=== PATIENT | female | born 1945 | race Caucasian/White ===

== ENCOUNTER 2019-09-29 04:50 | Inpatient (IN) ==
[2019-09-29] MEDS ORDERED: Acetaminophen 325 MG TABLET PO PRN (11:15)
[2019-09-29] MEDS ORDERED: Ringers Solution, Lactated 1,000 ML IVC SCH (11:15)
[2019-09-29 11:53] LABS: Basophils % 0.2 %; Hemoglobin 13.2 g/dL (11.5-15.4); Immature Granulocytes % 0.5 % (0-4); Lymphocytes # 0.6 K/mcL (0.6-4.6); Lymphocytes % 2.9 %; Mean Corpuscular HGB Conc 33.8 g/dL (31.6-35.5); Mean Corpuscular Hemoglobin 30.6 pg (28.0-33.3); Mean Corpuscular Volume 90.5 fL (83.0-100.0); Mean Platelet Volume 10.6 fL (9.4-12.4); Monocytes # 1.3 K/mcL (0.0-1.3); Monocytes % 6.7 %; Neutrophils # 17.7 K/mcL (1.6-8.9); Platelet Count 240 K/mcL (140-400); Red Blood Count 4.31 M/mcL (3.82-4.97); Red Cell Distribution Width 12.6 % (11.5-14.5); Segmented Neutrophils % 89.7 %; White Blood Count 19.7 K/mcL (4.3-11.1)
[2019-09-29 11:54] LABS: Prothrombin Time 11.6 Seconds (9.4-12.1)
[2019-09-29 12:15] LABS: Alanine Aminotransferase 11 Units/L (7-52); Albumin/Globulin Ratio 1.4 (1.1-2.2); Alkaline Phosphatase 47 Units/L (34-104); Aspartate Amino Transferase 21 Units/L (13-39); BUN/Creatinine Ratio 15 (6-26); Bilirubin,Total 0.6 mg/dL (0.3-1.0); Blood Urea Nitrogen 12 mg/dL (8-23); Calcium 8.6 mg/dL (8.6-10.3); Carbon Dioxide 29 mEq/L (23-29); Chloride 96 mEq/L (98-107); Globulin 2.8 g/dL (2.4-3.5); Glucose 130 mg/dL (70-105); Magnesium 1.6 mg/dL (1.6-2.6); Osmolality,Calculated 282 (280-300); Phosphorous 4.1 mg/dL (2.7-4.5); Potassium 3.6 mEq/L (3.5-5.1); Sodium 135 mEq/L (136-145); Total Protein 6.8 g/dL (6.4-8.9); Troponin I 0.19 ng/mL (< 0.04); eGFR For African Americans > 60 (> 60); eGFR For Non-African Americans > 60 (> 60)
[2019-09-29] MEDS ORDERED: *HR* Labetalol 20 MG/4 ML SYRINGE IVP PRN (12:19)
[2019-09-29] MEDS ORDERED: Aspirin 325 MG TABLET PO ONE (12:21)
[2019-09-29] MEDS: Piperacillin/Tazobactam 3.375 GM in 0.9 % Sodium Chloride Mini Bag 100 ML IVPB SCH ×2 (14:29→19:51)
[2019-09-29] MEDS: *HR* OxyCODONE Immed Rel 5 MG TABLET PO PRN ×2 (14:29→19:52)
[2019-09-29] MEDS: hydrALAZINE 25 MG TABLET PO SCH ×3 (14:29→23:51)
[2019-09-29] MEDS: 0.9 % Sodium Chloride 1,000 ML IVC SCH ×2 (14:31→23:51)
[2019-09-30] MEDS: hydrALAZINE 25 MG TABLET PO SCH (00:44)
[2019-09-30] MEDS: *HR* Promethazine 25 MG/ML VIAL IVP PRN ×2 (01:07→10:21)
[2019-09-30 02:10] LABS: Hemoglobin 13.4 g/dL (11.5-15.4); Mean Corpuscular HGB Conc 34.4 g/dL (31.6-35.5); Mean Corpuscular Hemoglobin 31.2 pg (28.0-33.3); Mean Corpuscular Volume 90.7 fL (83.0-100.0); Mean Platelet Volume 10.7 fL (9.4-12.4); Platelet Count 258 K/mcL (140-400); Red Cell Distribution Width 12.9 % (11.5-14.5); White Blood Count 24.7 K/mcL (4.3-11.1)
[2019-09-30 02:28] LABS: BUN/Creatinine Ratio 18 (6-26); Blood Urea Nitrogen 12 mg/dL (8-23); Calcium 8.4 mg/dL (8.6-10.3); Carbon Dioxide 26 mEq/L (23-29); Chloride 97 mEq/L (98-107); Glucose 135 mg/dL (70-105); Osmolality,Calculated 274 (280-300); Potassium 3.6 mEq/L (3.5-5.1); Sodium 131 mEq/L (136-145); eGFR For African Americans > 60 (> 60); eGFR For Non-African Americans > 60 (> 60)
[2019-09-30 02:32] LABS: Troponin I 0.48 ng/mL (< 0.04)
[2019-09-30] MEDS ORDERED: *HR* Heparin 5,000 UNIT/ML VIAL IVP ONE (02:45)
[2019-09-30] MEDS ORDERED: *HR* Heparin 5,000 UNIT/ML VIAL IVP PRN ×2 (02:45)
[2019-09-30] MEDS ORDERED: Heparin 25,000 UNIT/250 ML D5W 25,000 UNIT/250 ML IV.SOLN IVC SCH (02:45)
[2019-09-30] MEDS: *HR* Metoprolol 5 MG/5 ML VIAL IVP SCH ×2 (03:01→15:54)
[2019-09-30] MEDS: Piperacillin/Tazobactam 3.375 GM in 0.9 % Sodium Chloride Mini Bag 100 ML IVPB SCH ×2 (03:59→11:17)
[2019-09-30 04:06] LABS: Red Cell Distribution Width 12.9 % (11.5-14.5)
[2019-09-30 04:07] LABS: Hematocrit 41.5 % (35.3-44.9); Mean Corpuscular HGB Conc 33.7 g/dL (31.6-35.5); Mean Corpuscular Hemoglobin 30.8 pg (28.0-33.3); Mean Corpuscular Volume 91.4 fL (83.0-100.0); Mean Platelet Volume 10.7 fL (9.4-12.4); Platelet Count 254 K/mcL (140-400); Red Blood Count 4.54 M/mcL (3.82-4.97); White Blood Count 26.8 K/mcL (4.3-11.1)
[2019-09-30 04:19] LABS: INR 1.4; Prothrombin Time 16.3 Seconds (9.4-12.1)
[2019-09-30 04:26] LABS: Heparin anti-factor XA UFH 1.25 IU/mL (0.30-0.70)
[2019-09-30] MEDS ORDERED: *HR* LORazepam 2 MG/ML VIAL IVP ONE ×2 (09:58→14:54)
[2019-09-30] MEDS: 0.9 % Sodium Chloride 1,000 ML IVC SCH ×2 (11:14→23:41)
[2019-09-30] MEDS ORDERED: Isovue-370 500 ML BOTTLE IVP ONE (11:32)
[2019-09-30] MEDS ORDERED: 0.9 % Sodium Chloride 1,000 ML IVC SCH (15:12)
[2019-09-30] MEDS ORDERED: Isovue-370 500 ML BOTTLE PO ONE (15:26)
[2019-09-30 17:40] LABS: Bacteria,Urine Few per hpf (None-Few); Bilirubin,Urine Negative (Negative); Blood,Urine Small (Negative); Clarity,Urine Ex.Turbid (Clear); Color,Urine Dark-Yellow (Yellow); Glucose,Urine (UA) Normal (Normal); Ketones,Urine Trace mg/dL (Negative); Leukocyte Esterase,Urine Large (Negative); Nitrite,Urine Negative (Negative); PH,Urine 6.5 pH Units (5.0-8.0); Protein,Urine >=300 mg/dL (Neg-Trace); RBC,Urine 15-30 per hpf (0-3); Specific Gravity,Urine > 1.030 (1.010-1.025); Urobilinogen,Urine Normal (Normal); WBC,Urine TNTC per hpf (0-3)
[2019-09-30 17:54] LABS: Mean Platelet Volume 10.8 fL (9.4-12.4)
[2019-09-30 17:55] LABS: Hematocrit 41.8 % (35.3-44.9); Mean Corpuscular HGB Conc 33.5 g/dL (31.6-35.5); Mean Corpuscular Hemoglobin 30.4 pg (28.0-33.3); Mean Corpuscular Volume 90.7 fL (83.0-100.0); Platelet Count 240 K/mcL (140-400); Red Blood Count 4.61 M/mcL (3.82-4.97); Red Cell Distribution Width 13.1 % (11.5-14.5)
[2019-09-30 17:57] LABS: Amphetamine Screen,Urine Negative ng/mL (Cutoff=1000); Barbiturate Screen,Urine Negative ng/mL (Cutoff=200); Benzodiazepines Screen,Urine Negative ng/mL (Cutoff=200); Cannabinoid Screen,Urine Negative ng/mL (Cutoff = 50); Cocaine Screen,Urine Negative ng/mL (Cutoff= 300); Opiate Screen,Urine Positive ng/mL (Cutoff=300); Phencyclidine Screen,Urine Negative ng/mL (Cutoff=25)
[2019-09-30 18:08] LABS: BUN/Creatinine Ratio 26 (6-26); Blood Urea Nitrogen 20 mg/dL (8-23); Calcium 8.3 mg/dL (8.6-10.3); Carbon Dioxide 24 mEq/L (23-29); Chloride 99 mEq/L (98-107); Glucose 146 mg/dL (70-105); Osmolality,Calculated 279 (280-300); Potassium 3.7 mEq/L (3.5-5.1); Sodium 132 mEq/L (136-145); eGFR For African Americans > 60 (> 60); eGFR For Non-African Americans > 60 (> 60)
[2019-09-30] MEDS ORDERED: *HR* FentaNYL (PF) 100 MCG/2 ML VIAL ONE (18:50)
[2019-09-30] MEDS ORDERED: *HR* Propofol 200 MG/20 ML VIAL IVP ONE (18:50)
[2019-09-30] MEDS ORDERED: *HR* Rocuronium Bromide 50 MG/5 ML VIAL ONE (18:50)
[2019-09-30] MEDS ORDERED: Dexamethasone 4 MG/ML VIAL ONE (18:50)
[2019-09-30] MEDS ORDERED: Ondansetron 4 MG/2 ML VIAL ONE (18:50)
[2019-09-30] MEDS ORDERED: Lidocaine -MPF 2% 2 ML VIAL ONE (18:50)
[2019-09-30] MEDS ORDERED: Heparin 1,000 UNITS/500 mL 500 ML ONE (19:01)
[2019-09-30] MEDS ORDERED: Albumin Human 5% 25.0 GM/500 ML IV.SOLN ONE (19:31)
[2019-09-30] MEDS ORDERED: Acetaminophen IV 1,000 MG/100 ML BAG ONE (19:48)
[2019-09-30] MEDS ORDERED: EPHEDrine 50 MG/ML VIAL ONE (19:51)
[2019-09-30] MEDS ORDERED: *HR* HYDROMORPHONE 2 MG/ML VIAL ONE (20:46)
[2019-09-30] MEDS ORDERED: Ondansetron 4 MG/2 ML VIAL IVP PRN ×2 (20:59→22:55)
[2019-09-30] MEDS ORDERED: *HR* HYDROmorphone (PF) 1 MG/ML SYRINGE IVP PRN ×2 (20:59→22:55)
[2019-09-30] MEDS ORDERED: *HR* Labetalol 20 MG/4 ML SYRINGE IVP PRN ×2 (20:59→22:55)
[2019-09-30] MEDS ORDERED: Acetaminophen 325 MG TABLET PO PRN (22:55)
[2019-10-01] MEDS ORDERED: hydrALAZINE 25 MG TABLET PO SCH
[2019-10-01] MEDS ORDERED: *HR* Metoprolol 5 MG/5 ML VIAL IVP SCH (02:51)
[2019-10-01] MEDS: Piperacillin/Tazobactam 3.375 GM in 0.9 % Sodium Chloride Mini Bag 100 ML IVPB SCH ×3 (03:24→21:19)
[2019-10-01 06:36] LABS: Basophils % 0.2 %; Hematocrit 39.5 % (35.3-44.9); Hemoglobin 12.9 g/dL (11.5-15.4); Immature Granulocytes % 0.1 % (0-4); Lymphocytes # 0.3 K/mcL (0.6-4.6); Lymphocytes % 2.7 %; Mean Corpuscular HGB Conc 32.7 g/dL (31.6-35.5); Mean Corpuscular Hemoglobin 29.9 pg (28.0-33.3); Mean Corpuscular Volume 91.6 fL (83.0-100.0); Monocytes # 0.6 K/mcL (0.0-1.3); Monocytes % 4.9 %; Neutrophils # 10.7 K/mcL (1.6-8.9); Platelet Count 212 K/mcL (140-400); Red Blood Count 4.31 M/mcL (3.82-4.97); Red Cell Distribution Width 12.9 % (11.5-14.5); Segmented Neutrophils % 92.1 %
[2019-10-01 06:38] LABS: INR 1.3; Prothrombin Time 14.2 Seconds (9.4-12.1)
[2019-10-01 06:39] LABS: White Blood Count 11.6 K/mcL (4.3-11.1)
[2019-10-01 06:54] LABS: Platelet Estimate Normal (Normal); Reactive Lymphocytes Present (Not Present)
[2019-10-01 07:00] LABS: Troponin I 0.28 ng/mL (< 0.04)
[2019-10-01] MEDS ORDERED: *HR* LORazepam 2 MG/ML VIAL IVP ONE (07:36)
[2019-10-01 07:59] LABS: Carbon Dioxide 25 mEq/L (23-29)
[2019-10-01 08:00] LABS: BUN/Creatinine Ratio 32 (6-26); Blood Urea Nitrogen 20 mg/dL (8-23); Calcium 8.3 mg/dL (8.6-10.3); Chloride 102 mEq/L (98-107); Glucose 129 mg/dL (70-105); Magnesium 1.6 mg/dL (1.6-2.6); Osmolality,Calculated 284 (280-300); Potassium 3.8 mEq/L (3.5-5.1); Sodium 135 mEq/L (136-145); eGFR For African Americans > 60 (> 60); eGFR For Non-African Americans > 60 (> 60)
[2019-10-01] MEDS: *HR* Metoprolol 5 MG/5 ML VIAL IVP SCH ×2 (09:27→21:20)
[2019-10-01] MEDS: 0.9 % Sodium Chloride 1,000 ML IVC SCH (14:39)
[2019-10-01] MEDS: *HR* Promethazine 25 MG/ML VIAL IVP PRN (14:57)
[2019-10-01] MEDS ORDERED: *HR* Heparin 5,000 UNIT/ML VIAL SQ SCH (22:00)
[2019-10-02] MEDS: 0.9 % Sodium Chloride 1,000 ML IVC SCH (02:18)
[2019-10-02 02:56] LABS: Basophils % 0.1 %; Hematocrit 36.5 % (35.3-44.9); Hemoglobin 11.6 g/dL (11.5-15.4); Immature Granulocytes % 0.4 % (0-4); Lymphocytes # 0.4 K/mcL (0.6-4.6); Lymphocytes % 2.8 %; Mean Corpuscular HGB Conc 31.8 g/dL (31.6-35.5); Mean Corpuscular Hemoglobin 29.6 pg (28.0-33.3); Mean Corpuscular Volume 93.1 fL (83.0-100.0); Mean Platelet Volume 10.6 fL (9.4-12.4); Monocytes % 7.3 %; Neutrophils # 11.8 K/mcL (1.6-8.9); Platelet Count 222 K/mcL (140-400); Red Blood Count 3.92 M/mcL (3.82-4.97); Red Cell Distribution Width 13.1 % (11.5-14.5); Segmented Neutrophils % 89.4 %; White Blood Count 13.2 K/mcL (4.3-11.1)
[2019-10-02 03:12] LABS: BUN/Creatinine Ratio 39 (6-26); Blood Urea Nitrogen 24 mg/dL (8-23); Calcium 8.1 mg/dL (8.6-10.3); Carbon Dioxide 30 mEq/L (23-29); Chloride 104 mEq/L (98-107); Glucose 119 mg/dL (70-105); Magnesium 2.2 mg/dL (1.6-2.6); Osmolality,Calculated 295 (280-300); Phosphorous 1.9 mg/dL (2.7-4.5); Potassium 3.6 mEq/L (3.5-5.1); Sodium 140 mEq/L (136-145); eGFR For African Americans > 60 (> 60); eGFR For Non-African Americans > 60 (> 60)
[2019-10-02 03:28] LABS: Platelet Estimate Normal (Normal); Toxic Granulation Present (Not Present)
[2019-10-02] MEDS: Piperacillin/Tazobactam 3.375 GM in 0.9 % Sodium Chloride Mini Bag 100 ML IVPB SCH ×3 (04:08→21:10)
[2019-10-02] MEDS: *HR* Heparin 5,000 UNIT/ML VIAL SQ SCH ×3 (05:45→21:11)
[2019-10-02] MEDS ORDERED: Potassium Phosphate 44 MEQ in 0.9 % Sodium Chloride 250 ML IVPB ONE (08:26)
[2019-10-02] MEDS: *HR* Metoprolol 5 MG/5 ML VIAL IVP SCH ×2 (10:20→18:22)
[2019-10-02] MEDS ORDERED: Isovue-370 500 ML BOTTLE IVP ONE (14:20)
[2019-10-02] MEDS ORDERED: *HR* LORazepam 2 MG/ML VIAL IVP PRN (14:21)
[2019-10-02] MEDS ORDERED: 0.9 % Sodium Chloride 1,000 ML IVC SCH (17:43)
[2019-10-02] MEDS: *HR* Promethazine 25 MG/ML VIAL IVP PRN (22:37)
[2019-10-03] MEDS: *HR* Metoprolol 5 MG/5 ML VIAL IVP SCH ×4 (00:10→17:36)
[2019-10-03] MEDS: Piperacillin/Tazobactam 3.375 GM in 0.9 % Sodium Chloride Mini Bag 100 ML IVPB SCH ×3 (05:01→21:23)
[2019-10-03] MEDS: *HR* Heparin 5,000 UNIT/ML VIAL SQ SCH ×3 (05:03→21:24)
[2019-10-03 06:19] LABS: Basophils % 0.3 %; Hematocrit 35.5 % (35.3-44.9); Hemoglobin 11.3 g/dL (11.5-15.4); Immature Granulocytes % 0.9 % (0-4); Lymphocytes # 0.5 K/mcL (0.6-4.6); Lymphocytes % 3.5 %; Mean Corpuscular HGB Conc 31.8 g/dL (31.6-35.5); Mean Corpuscular Hemoglobin 30.3 pg (28.0-33.3); Mean Corpuscular Volume 95.2 fL (83.0-100.0); Mean Platelet Volume 10.8 fL (9.4-12.4); Monocytes # 0.8 K/mcL (0.0-1.3); Monocytes % 5.4 %; Neutrophils # 13.9 K/mcL (1.6-8.9); Platelet Count 291 K/mcL (140-400); Red Blood Count 3.73 M/mcL (3.82-4.97); Red Cell Distribution Width 13.1 % (11.5-14.5); Segmented Neutrophils % 89.9 %; White Blood Count 15.5 K/mcL (4.3-11.1)
[2019-10-03 06:38] LABS: BUN/Creatinine Ratio 62 (6-26); Blood Urea Nitrogen 34 mg/dL (8-23); Calcium 8.4 mg/dL (8.6-10.3); Carbon Dioxide 31 mEq/L (23-29); Chloride 105 mEq/L (98-107); Glucose 110 mg/dL (70-105); Magnesium 2.3 mg/dL (1.6-2.6); Osmolality,Calculated 308 (280-300); Phosphorous 1.9 mg/dL (2.7-4.5); Potassium 3.3 mEq/L (3.5-5.1); Sodium 145 mEq/L (136-145); eGFR For African Americans > 60 (> 60); eGFR For Non-African Americans > 60 (> 60)
[2019-10-03] MEDS ORDERED: Potassium Phosphate 44 MEQ in 0.9 % Sodium Chloride 250 ML IVPB ONE (09:34)
[2019-10-03] MEDS ORDERED: 0.9 % Sodium Chloride 1,000 ML IVC SCH (18:45)
[2019-10-04] MEDS: *HR* Metoprolol 5 MG/5 ML VIAL IVP SCH ×4 (00:23→18:49)
[2019-10-04 01:02] LABS: Basophils # 0.1 K/mcL (0.0-0.2); Basophils % 0.9 %; Eosinophils % 0.1 %; Hematocrit 33.2 % (35.3-44.9); Hemoglobin 10.4 g/dL (11.5-15.4); Immature Granulocytes % 2.2 % (0-4); Lymphocytes # 0.7 K/mcL (0.6-4.6); Lymphocytes % 4.4 %; Mean Corpuscular HGB Conc 31.3 g/dL (31.6-35.5); Mean Corpuscular Hemoglobin 29.7 pg (28.0-33.3); Mean Corpuscular Volume 94.9 fL (83.0-100.0); Mean Platelet Volume 10.4 fL (9.4-12.4); Monocytes # 0.8 K/mcL (0.0-1.3); Monocytes % 5.5 %; Neutrophils # 12.9 K/mcL (1.6-8.9); Platelet Count 304 K/mcL (140-400); Red Cell Distribution Width 13.2 % (11.5-14.5); Segmented Neutrophils % 86.9 %; White Blood Count 14.8 K/mcL (4.3-11.1)
[2019-10-04 01:23] LABS: BUN/Creatinine Ratio 60 (6-26); Blood Urea Nitrogen 30 mg/dL (8-23); Carbon Dioxide 30 mEq/L (23-29); Chloride 111 mEq/L (98-107); Glucose 102 mg/dL (70-105); Magnesium 2.3 mg/dL (1.6-2.6); Osmolality,Calculated 316 (280-300); Phosphorous 2.6 mg/dL (2.7-4.5); Potassium 3.8 mEq/L (3.5-5.1); Sodium 150 mEq/L (136-145); eGFR For African Americans > 60 (> 60); eGFR For Non-African Americans > 60 (> 60)
[2019-10-04] MEDS: *HR* Promethazine 25 MG/ML VIAL IVP PRN (01:41)
[2019-10-04] MEDS: Piperacillin/Tazobactam 3.375 GM in 0.9 % Sodium Chloride Mini Bag 100 ML IVPB SCH ×3 (04:17→21:15)
[2019-10-04] MEDS: *HR* Heparin 5,000 UNIT/ML VIAL SQ SCH ×3 (05:40→21:34)
[2019-10-04] MEDS ORDERED: *HR* Labetalol 20 MG/4 ML SYRINGE IVP PRN ×2 (08:05→16:30)
[2019-10-04] MEDS ORDERED: Ondansetron 4 MG/2 ML VIAL IVP PRN (08:06)
[2019-10-04] MEDS: Acetaminophen IV 1,000 MG/100 ML BAG IVPB SCH ×2 (11:33→19:34)
[2019-10-04] MEDS: Ringers Solution, Lactated 1,000 ML IVC SCH (13:39)
[2019-10-04] MEDS: Ondansetron 4 MG/2 ML VIAL IVP PRN (13:42)
[2019-10-05] MEDS: Acetaminophen IV 1,000 MG/100 ML BAG IVPB SCH ×3 (00:23→12:21)
[2019-10-05] MEDS: *HR* Metoprolol 5 MG/5 ML VIAL IVP SCH ×5 (00:23→23:47)
[2019-10-05] MEDS: Piperacillin/Tazobactam 3.375 GM in 0.9 % Sodium Chloride Mini Bag 100 ML IVPB SCH ×3 (04:30→21:10)
[2019-10-05] MEDS: Ondansetron 4 MG/2 ML VIAL IVP PRN (04:40)
[2019-10-05] MEDS: *HR* Heparin 5,000 UNIT/ML VIAL SQ SCH ×3 (05:36→21:10)
[2019-10-05 06:15] LABS: Basophils % 0.1 %; Eosinophils # 0.1 K/mcL (0.0-0.6); Eosinophils % 0.6 %; Hematocrit 31.1 % (35.3-44.9); Hemoglobin 9.7 g/dL (11.5-15.4); Immature Granulocytes % 5.3 % (0-4); Lymphocytes # 0.7 K/mcL (0.6-4.6); Lymphocytes % 4.4 %; Mean Corpuscular HGB Conc 31.2 g/dL (31.6-35.5); Mean Corpuscular Hemoglobin 30.1 pg (28.0-33.3); Mean Corpuscular Volume 96.6 fL (83.0-100.0); Mean Platelet Volume 10.1 fL (9.4-12.4); Monocytes # 0.9 K/mcL (0.0-1.3); Monocytes % 5.6 %; Neutrophils # 13.7 K/mcL (1.6-8.9); Nucleated Red Blood Cells 0.4 /100 WBC (0); Platelet Count 345 K/mcL (140-400); Red Blood Count 3.22 M/mcL (3.82-4.97); Red Cell Distribution Width 13.2 % (11.5-14.5); White Blood Count 16.3 K/mcL (4.3-11.1)
[2019-10-05 06:37] LABS: BUN/Creatinine Ratio 51 (6-26); Blood Urea Nitrogen 28 mg/dL (8-23); Calcium 7.9 mg/dL (8.6-10.3); Carbon Dioxide 34 mEq/L (23-29); Chloride 109 mEq/L (98-107); Glucose 125 mg/dL (70-105); Osmolality,Calculated 309 (280-300); Potassium 4.4 mEq/L (3.5-5.1); Sodium 146 mEq/L (136-145); eGFR For African Americans > 60 (> 60); eGFR For Non-African Americans > 60 (> 60)
[2019-10-05 06:43] LABS: Platelet Estimate Normal (Normal)
[2019-10-05] MEDS: Ringers Solution, Lactated 1,000 ML IVC SCH (10:57)
[2019-10-05] MEDS ORDERED: amLODIPine 5 MG TABLET PO SCH (13:03)
[2019-10-05] MEDS: Aspirin Enteric Coated 81 MG Tablet PO SCH (14:26)
[2019-10-06] MEDS: Piperacillin/Tazobactam 3.375 GM in 0.9 % Sodium Chloride Mini Bag 100 ML IVPB SCH ×3 (03:31→20:09)
[2019-10-06] MEDS: *HR* Metoprolol 5 MG/5 ML VIAL IVP SCH ×4 (05:50→23:55)
[2019-10-06] MEDS: *HR* Heparin 5,000 UNIT/ML VIAL SQ SCH ×3 (05:50→22:15)
[2019-10-06 06:38] LABS: Hematocrit 32.3 % (35.3-44.9); Hemoglobin 9.9 g/dL (11.5-15.4); Mean Corpuscular HGB Conc 30.7 g/dL (31.6-35.5); Mean Corpuscular Hemoglobin 29.7 pg (28.0-33.3); Mean Platelet Volume 9.9 fL (9.4-12.4); Nucleated Red Blood Cells 0.2 /100 WBC (0); Platelet Count 383 K/mcL (140-400); Red Blood Count 3.33 M/mcL (3.82-4.97); Red Cell Distribution Width 13.2 % (11.5-14.5)
[2019-10-06 06:54] LABS: BUN/Creatinine Ratio 42 (6-26); Blood Urea Nitrogen 22 mg/dL (8-23); Carbon Dioxide 32 mEq/L (23-29); Chloride 106 mEq/L (98-107); Glucose 96 mg/dL (70-105); Osmolality,Calculated 301 (280-300); Potassium 4.2 mEq/L (3.5-5.1); Sodium 144 mEq/L (136-145); eGFR For African Americans > 60 (> 60); eGFR For Non-African Americans > 60 (> 60)
[2019-10-06 07:07] LABS: Eosinophils # 0.7 K/mcL (0.0-0.6); Lymphocytes # 1.4 K/mcL (0.6-4.6); Monocytes # 0.4 K/mcL (0.0-1.3); Neutrophils # 15.5 K/mcL (1.6-8.9); Platelet Estimate Normal (Normal)
[2019-10-06] MEDS: Aspirin Enteric Coated 81 MG Tablet PO SCH (08:01)
[2019-10-06 10:44] LABS: Bilirubin,Urine Negative (Negative); Blood,Urine Negative (Negative); Clarity,Urine Clear (Clear); Color,Urine Light-Yellow (Yellow); Glucose,Urine (UA) Normal (Normal); Ketones,Urine 20 mg/dL (Negative); Leukocyte Esterase,Urine Negative (Negative); Nitrite,Urine Negative (Negative); PH,Urine 6.5 pH Units (5.0-8.0); Protein,Urine Trace mg/dL (Neg-Trace); Specific Gravity,Urine > 1.030 (1.010-1.025); Urobilinogen,Urine Normal (Normal)
[2019-10-06] MEDS: Furosemide 20 MG/2 ML VIAL IVP SCH (12:08)
[2019-10-06] MEDS: Ondansetron 4 MG/2 ML VIAL IVP PRN (23:55)
[2019-10-07 02:52] LABS: Hematocrit 31.9 % (35.3-44.9); Hemoglobin 9.8 g/dL (11.5-15.4); Mean Corpuscular HGB Conc 30.7 g/dL (31.6-35.5); Mean Corpuscular Hemoglobin 29.5 pg (28.0-33.3); Mean Corpuscular Volume 96.1 fL (83.0-100.0); Mean Platelet Volume 9.9 fL (9.4-12.4); Nucleated Red Blood Cells 0.2 /100 WBC (0); Platelet Count 383 K/mcL (140-400); Red Blood Count 3.32 M/mcL (3.82-4.97); Red Cell Distribution Width 13.2 % (11.5-14.5); White Blood Count 14.9 K/mcL (4.3-11.1)
[2019-10-07 03:11] LABS: Eosinophils # 0.9 K/mcL (0.0-0.6); Large Platelets Present (Not Present); Lymphocytes # 1.5 K/mcL (0.6-4.6); Monocytes # 0.6 K/mcL (0.0-1.3); Neutrophils # 11.3 K/mcL (1.6-8.9); Platelet Estimate Normal (Normal); Polychromasia 1+ (Not Present)
[2019-10-07 03:13] LABS: BUN/Creatinine Ratio 37 (6-26); Blood Urea Nitrogen 19 mg/dL (8-23); Carbon Dioxide 32 mEq/L (23-29); Chloride 101 mEq/L (98-107); Glucose 101 mg/dL (70-105); Osmolality,Calculated 294 (280-300); Potassium 3.7 mEq/L (3.5-5.1); Sodium 141 mEq/L (136-145); eGFR For African Americans > 60 (> 60); eGFR For Non-African Americans > 60 (> 60)
[2019-10-07] MEDS: Piperacillin/Tazobactam 3.375 GM in 0.9 % Sodium Chloride Mini Bag 100 ML IVPB SCH ×3 (03:52→20:46)
[2019-10-07] MEDS: *HR* Metoprolol 5 MG/5 ML VIAL IVP SCH ×2 (05:58→11:56)
[2019-10-07] MEDS: *HR* Heparin 5,000 UNIT/ML VIAL SQ SCH ×3 (05:58→20:48)
[2019-10-07] MEDS: Aspirin Enteric Coated 81 MG Tablet PO SCH ×2 (09:35→10:07)
[2019-10-07] MEDS: Furosemide 20 MG/2 ML VIAL IVP SCH (09:35)
[2019-10-08] MEDS: Piperacillin/Tazobactam 3.375 GM in 0.9 % Sodium Chloride Mini Bag 100 ML IVPB SCH ×3 (03:19→19:49)
[2019-10-08 03:43] LABS: Hematocrit 30.2 % (35.3-44.9); Hemoglobin 9.6 g/dL (11.5-15.4); Mean Corpuscular HGB Conc 31.8 g/dL (31.6-35.5); Mean Corpuscular Hemoglobin 30.5 pg (28.0-33.3); Mean Corpuscular Volume 95.9 fL (83.0-100.0); Mean Platelet Volume 10.4 fL (9.4-12.4); Monocytes # 0.8 K/mcL (0.0-1.3); Platelet Count 408 K/mcL (140-400); Red Blood Count 3.15 M/mcL (3.82-4.97); Red Cell Distribution Width 13.2 % (11.5-14.5); White Blood Count 13.8 K/mcL (4.3-11.1)
[2019-10-08 04:04] LABS: % Iron Saturation 16 % (15-50); BUN/Creatinine Ratio 30 (6-26); Blood Urea Nitrogen 18 mg/dL (8-23); Calcium 7.9 mg/dL (8.6-10.3); Carbon Dioxide 34 mEq/L (23-29); Chloride 101 mEq/L (98-107); Glucose 105 mg/dL (70-105); Iron 27 mcg/dL (50-170); Magnesium 1.7 mg/dL (1.6-2.6); Osmolality,Calculated 300 (280-300); Potassium 3.5 mEq/L (3.5-5.1); Sodium 144 mEq/L (136-145); Transferrin 123 mg/dL (203-362); eGFR For African Americans > 60 (> 60); eGFR For Non-African Americans > 60 (> 60)
[2019-10-08 04:15] LABS: Eosinophils # 0.3 K/mcL (0.0-0.6); Large Platelets Present (Not Present); Lymphocytes # 1.4 K/mcL (0.6-4.6); Neutrophils # 10.5 K/mcL (1.6-8.9)
[2019-10-08 04:16] LABS: Anisocytosis 1+ (Not Present); Macrocytosis Present (Not Present); Polychromasia 1+ (Not Present)
[2019-10-08 04:22] LABS: Ferritin 245 ng/mL (10-120)
[2019-10-08 04:28] LABS: Folate > 22.3 ng/mL (3.0-16.0); Vitamin B12 > 1500 pg/mL (250-1100)
[2019-10-08] MEDS: *HR* Heparin 5,000 UNIT/ML VIAL SQ SCH ×3 (05:32→19:50)
[2019-10-08] MEDS: Bisoprolol/HCTZ 5/6.25 TABLET PO SCH (09:56)
[2019-10-08] MEDS: Aspirin Enteric Coated 81 MG Tablet PO SCH (09:56)
[2019-10-08] MEDS ORDERED: Acetaminophen 325 MG TABLET PO PRN (14:54)
[2019-10-08] MEDS ORDERED: Aminoglycoside Consult 1 EACH MC ONE (17:04)
[2019-10-08] MEDS ORDERED: *HR* LORazepam 2 MG/ML VIAL IVP ONE (19:36)
[2019-10-08] MEDS ORDERED: Haloperidol Lactate 5 MG/ML VIAL IVP ONE ×2 (21:17→22:36)
[2019-10-09] MEDS: Piperacillin/Tazobactam 3.375 GM in 0.9 % Sodium Chloride Mini Bag 100 ML IVPB SCH ×2 (03:22→13:26)
[2019-10-09] MEDS ORDERED: Haloperidol Lactate 5 MG/ML VIAL IVP ONE (04:06)
[2019-10-09 04:14] LABS: BUN/Creatinine Ratio 35 (6-26); Blood Urea Nitrogen 19 mg/dL (8-23); Calcium 7.8 mg/dL (8.6-10.3); Carbon Dioxide 31 mEq/L (23-29); Chloride 102 mEq/L (98-107); Glucose 112 mg/dL (70-105); Magnesium 1.6 mg/dL (1.6-2.6); Osmolality,Calculated 291 (280-300); Potassium 2.9 mEq/L (3.5-5.1); Sodium 139 mEq/L (136-145); eGFR For African Americans > 60 (> 60); eGFR For Non-African Americans > 60 (> 60)
[2019-10-09] MEDS: *HR* Heparin 5,000 UNIT/ML VIAL SQ SCH ×2 (04:20→16:03)
[2019-10-09 05:08] LABS: Basophils # 0.1 K/mcL (0.0-0.2); Basophils % 0.6 %; Eosinophils # 0.2 K/mcL (0.0-0.6); Eosinophils % 1.5 %; Hematocrit 30.5 % (35.3-44.9); Hemoglobin 9.6 g/dL (11.5-15.4); Immature Granulocytes % 4.5 % (0-4); Lymphocytes # 0.9 K/mcL (0.6-4.6); Mean Corpuscular HGB Conc 31.5 g/dL (31.6-35.5); Mean Corpuscular Hemoglobin 30.2 pg (28.0-33.3); Mean Corpuscular Volume 95.9 fL (83.0-100.0); Mean Platelet Volume 9.8 fL (9.4-12.4); Monocytes # 0.7 K/mcL (0.0-1.3); Monocytes % 4.6 %; Neutrophils # 12.9 K/mcL (1.6-8.9); Platelet Count 451 K/mcL (140-400); Red Blood Count 3.18 M/mcL (3.82-4.97); Red Cell Distribution Width 13.1 % (11.5-14.5); Segmented Neutrophils % 82.8 %; White Blood Count 15.6 K/mcL (4.3-11.1)
[2019-10-09] MEDS: Aspirin Enteric Coated 81 MG Tablet PO SCH (10:50)
[2019-10-09] MEDS: Bisoprolol/HCTZ 5/6.25 TABLET PO SCH (10:51)
[2019-10-09] MEDS ORDERED: QUEtiapine Fumarate 25 MG TABLET PO SCH (11:30)
[2019-10-09 14:17] VITALS: BP 125/70
== END 2019-10-09 17:05 | DRG 853 ==
LOC: 3ANU → SUATTDRO 11:15 → 3ANU 11:41 → SUATTDRO 10-01 15:03
PROVIDERS: ADMIT Internal Medicine; ATTEND Pharmacist